=== PATIENT | male | born 1990 | race African-American/Black ===

== ENCOUNTER 2021-06-02 08:23 | Emergency (ER) | payer OTHER ==
[2021-06-02 08:42] VITALS: BP 105/70; PULSE 92; TEMP 98; BMI 20.2
== END 2021-06-02 10:34 | disposition home or self-care (01) ==
LOC: JERFT 08:23
DX: R36.9 Urethral discharge, unspecified (principal); M25.562 Pain in left knee
CPT/HCPCS: 36415; 73562-TC-LT-FY; 87491; 87591; 99284-25